=== PATIENT | male | born 1940 | race Caucasian/White ===

== ENCOUNTER 2016-08-20 06:22 | Observation (INO) | payer OTHER ==
[2016-08-13 11:04] LABS: CALCIUM, SERUM 9.4 MG/DL (8.5-10.4); CHLORIDE, SERUM 104 MMOL/L (96-112); CO2 (CARBON DIOXIDE) 31 MMOL/L (24-34); CREATININE 1.14 MG/DL (0.70-1.30); GFR AFRICAN AMERICAN 74 ML/MIN (>=60); GFR NON AFRICAN AMERICAN 63 ML/MIN (>=60); POTASSIUM, SERUM 4.9 MMOL/L (3.5-5.3); SODIUM, SERUM 143 MMOL/L (135-148)
[2016-08-13 11:05] LABS: BUN (BLOOD UREA NITROGEN) 17 MG/DL (6-23); GLUCOSE, SERUM 94 MG/DL (60-99)
[2016-08-13 11:13] LABS: HEMATOCRIT 41.1 % (40.0-51.0); HEMOGLOBIN 14.2 g/dL (13.6-17.8)
[2016-08-13 11:51] LABS: ASCORBIC ACID (UR NOT ORDER) NEG (NEG); BILIRUBIN, URINE NEGATIVE (NEG); KETONE, URINE NEGATIVE (NEG); LEUKOCYTE ESTERASE(NOT OR NEG (NEG); WBC (NOT ORDERED) (RFLEX) < 1 (0-5)
--- NOTE | ~2016-08-20 | OP ---
Record Of Operation [facility] [address] [place]. [address] NAME: TRU APARICIO : 44 STATUS : ADM IN PAT#: [id number] AGE: 75 ADM/REG DATE : 08/20/16 MR#: [id number] REPORT SERV DATE: 08/20/16 DICTATED BY: BRADEN GUZMAN JR. DATE: 08/20/16 REPORT STATUS : Draft TRANSCRIBED BY: CHERELLE DATE: 08/20/16 DATE OF PROCEDURE: PREOPERATIVE DIAGNOSES: Bladder outlet obstruction and BPH. POSTOPERATIVE DIAGNOSES: Bladder outlet obstruction and BPH. PROCEDURE PERFORMED: Cystoscopy and transurethral resection of the prostate. COMPLICATIONS: None. CONSULTATIONS: None. ANESTHESIA: General with an endotracheal tube. SPECIMENS: Prostate chips. DRAINS: [id number] 3-way Wang catheter. ESTIMATED BLOOD LOSS: None. INDICATION: Mr. Aparicio is a 75-year-old gentleman who comes today for transurethral resection of the prostate for BPH symptoms. He has failed multiple different medical therapies and most recently finasteride 5 mg p.o. daily. PROCEDURE IN DETAIL: After the patient was identified and proper informed consent was obtained, he was taken to the operating room. General anesthesia was performed without complication using an endotracheal tube. He was then prepped and draped in normal sterile fashion in the lithotomy position. Cystoscopic examination of the urethra reveals a normal penile and bulbous urethra. The prostatic urethra was approximately 3 to 3.5 cm in length with a trilobar hypertrophy appearance. The bladder mucosa was mildly to moderately trabeculated. Both ureteral orifices were in the normal position and normal size. I removed the cystoscope, and using the [place] sounds, I dilated the urethra to 28-[place] and then placed a 26-[place] resectoscope with continuous flow sheath. I then performed transurethral resection of the prostate of the three lobes, median lobe and two lateral lobes, from the bladder neck to the verumontanum down to surgical capsule leaving a strip of urethra along the 12 o'clock position. The chips were removed from the bladder using an Karina evacuator and hemostasis was felt to be excellent at that point, I removed the resectoscope and placed a 24-[place] 3-way Wang catheter using a catheter guide. Light traction was placed on the balloon with 50 mL of sterile water. The patient was transferred to the Postanesthesia Care Unit in stable condition. ANASTASIA/CHERELLE Record Of [place] [address] [place]. [address] NAME: TRU APARICIO : 44 STATUS : ADM IN PAT#: [id number] AGE: 75 ADM/REG DATE : 08/20/16 MR#: [id number] REPORT SERV DATE: 08/20/16 DICTATED BY: BRADEN GUZMAN JR. DATE: 08/20/16 REPORT STATUS : Draft TRANSCRIBED BY: CHERELLE DATE: 08/20/16 Braden Guzman Jr., M.D. / [id number] CC: Serena Martin Jr., M.D.
[~2016-08-20 06:22] MED LIST: ASAB PO; FLOMAX4 PO; LIPITOR20 PO; LIPITOR40 PO; LOM PO; NEUR400 PO; NEUR800 PO; NIACIN 500 PO; PLAVIX PO; PR25 PO; PRILO PO; PRIN2.5 PO; PROSCAR5 PO; PROTONIX PO; RELA5 PO; VITAMIN D31000 UNIT PO
[2016-08-20 10:43] LABS: HEMATOCRIT 39.7 % (40.0-51.0); HEMOGLOBIN 13.7 g/dL (13.6-17.8)
[2016-08-21 04:41] LABS: HEMATOCRIT 41.4 % (40.0-51.0); HEMOGLOBIN 14.3 g/dL (13.6-17.8)
== END 2016-08-21 10:14 | disposition home or self-care (01) ==
LOC: SDC 06:22 → 4SO 13:03
PROVIDERS: Urology
PROC: 0VT08ZZ Resection of Prostate, Via Natural or Artificial Opening Endoscopic (ICD-10-PCS; principal; 2016-08-20 07:45)
DX: N40.0 Benign prostatic hyperplasia without lower urinary tract symptoms (principal); N32.0 Bladder-neck obstruction; Z88.5 Allergy status to narcotic agent; I45.10 Unspecified right bundle-branch block; I10 Essential (primary) hypertension; E11.9 Type 2 diabetes mellitus without complications; Z95.1 Presence of aortocoronary bypass graft
CPT/HCPCS: 36415; 52601; 80048; 81001; 82962 ×2; 84295 ×2; 85014 ×3; 85018 ×3; 86850; 86900; 86901; 88305; 93005; G0378; J2250; J2270; J2405; J2550; J2710; J3010; A9270-GY